=== PATIENT | male | born 1990 | race Caucasian/White ===

== ENCOUNTER 2018-03-11 18:39 | Emergency (ER) | payer MEDICARE, MEDICAID ==
--- NOTE | 2018-03-11 20:10 | ER Document Report ---
ED Medical Screen (RME) - General Chief Complaint: Drug Abuse Stated Complaint: DETOX Time Seen by Provider: 03/11/18 20:08 Notes: 27 years old male who is deaf and dump, has been abusing prescription drugs from a friend, likes to go to detox program therefore presented to the ED. TRAVEL OUTSIDE OF THE U.S. IN LAST 30 DAYS: No - Related Data Allergies/Adverse Reactions: gentamicin [Gentamicin] Allergy (Severe, Verified 09/29/14 19:10) Hearing loss Past Medical History - Social History Frequency of alcohol use: None Drug Abuse: Prescription drugs Renal/ Medical History: Denies: Hx Peritoneal Dialysis Skin Medical History: Denies Hx MRSA - Immunizations Immunizations up to date: Yes Hx Diphtheria, Pertussis, Tetanus Vaccination: Yes Physical Exam - Vital signs Vitals: Temp Pulse Resp BP Pulse Ox 98.3 F 56 L 15 126/74 H 100 03/11/18 19:02 03/11/18 19:02 03/11/18 19:02 03/11/18 19:02 03/11/18 19:02 Course - Vital Signs Vital signs: Temp Pulse Resp BP Pulse Ox 98.3 F 56 L 15 126/74 H 100 03/11/18 19:02 03/11/18 19:02 03/11/18 19:02 03/11/18 19:02 03/11/18 19:02 Doctor's Discharge - Discharge Referrals: JONATHAN MATHUR MD [Primary Care Provider] - Follow up as needed
[2018-03-11 21:24] LABS: ABSOLUTE BASOPHILS # (AUTO) 0.1 10^3/uL (0.0-0.2); ABSOLUTE EOSINOPHILS # (AUTO) 0.4 10^3/uL (0.0-0.6); ABSOLUTE LYMPHOCYTES (AUTO) 2.9 10^3/uL (0.5-4.7); ABSOLUTE MONOCYTES (AUTO) 0.6 10^3/uL (0.1-1.4); ABSOLUTE NEUT (AUTO) 5.1 10^3/uL (1.7-8.2); BASOPHILS % (AUTO) 1.1 % (0-2); EOSINOPHILS % (AUTO) 4.8 % (0-6); HEMATOCRIT 42.7 % (37.9-51.0); HEMOGLOBIN 14.6 g/dL (13.5-17.0); LYMPHOCYTES % (AUTO) 31.7 % (13-45); MEAN CORPUSCULAR HEMOGLOBIN 29.7 pg (27.0-33.4); MEAN CORPUSCULAR HGB CONC 34.3 g/dL (32.0-36.0); MEAN CORPUSCULAR VOLUME 87 fl (80-97); MONOCYTES % (AUTO) 6.7 % (3-13); PLATELET COUNT 280 10^3/uL (150-450); RED BLOOD COUNT 4.93 10^6/uL (4.35-5.55); RED CELL DISTRIBUTION WIDTH 14.1 % (11.5-14.0); SEGMENTED NEUTROPHILS % (AUTO) 55.7 % (42-78); TOTAL CELLS COUNTED % (AUTO) 100 %; WHITE BLOOD COUNT 9.1 10^3/uL (4.0-10.5)
[2018-03-11 21:44] LABS: ALANINE AMINOTRANSFERASE 42 U/L (21-72); ALBUMIN 4.7 g/dL (3.5-5.0); ALKALINE PHOSPHATASE 69 U/L (38-126); ANION GAP 12 (5-19); ASPARTATE AMINO TRANSFERASE 23 U/L (17-59); BILIRUBIN,DIRECT 0.2 mg/dL (0.0-0.4); BILIRUBIN,TOTAL 0.2 mg/dL (0.2-1.3); BLOOD UREA NITROGEN 13 mg/dL (7-20); CALCIUM 9.5 mg/dL (8.4-10.2); CARBON DIOXIDE 26 mmol/L (22-30); CHLORIDE 106 mmol/L (98-107); GLUCOSE 88 mg/dL (75-110); TOTAL PROTEIN 7.4 g/dL (6.3-8.2)
[2018-03-11 21:45] LABS: ACETAMINOPHEN < 10 ug/mL (10-30); ALCOHOL < 10 mg/dL (NONE DETECTED); SALICYLATE < 1.0 mg/dL (2.0-20.0)
[2018-03-11 21:56] LABS: AMORPHOUS SEDIMENT,URINE TRACE /HPF; APPEARANCE,URINE SLIGHTLY-CLOUDY; BILIRUBIN,URINE NEGATIVE (NEGATIVE); COLOR,URINE YELLOW; GLUCOSE, URINE NEGATIVE (NEGATIVE); KETONES,URINE NEGATIVE (NEGATIVE); LEUKOCYTE ESTERASE,URINE NEGATIVE (NEGATIVE); NITRITE,URINE NEGATIVE (NEGATIVE); PROTEIN,URINE NEGATIVE (NEGATIVE); URINE SPECIFIC GRAVITY 1.028
--- NOTE | 2018-03-11 22:02 | ER Document Report ---
ED Substance Abuse / Acc. OD - General TRAVEL OUTSIDE OF THE U.S. IN LAST 30 DAYS: No <TIMOTHY GARCIA - Last Filed: 03/11/18 22:03> <CARLO GOEL - Last Filed: 03/11/18 23:54> <WHIT GHOSH - Last Filed: 03/12/18 11:34> <ANAYELI GOULD - Last Filed: 03/12/18 12:12> - General Chief Complaint: Drug Abuse Stated Complaint: DETOX Time Seen by Provider: 03/11/18 20:08 Notes: 27-year-old deaf male being translated using sign language by his mother that presents to the emergency department today with complaints of wanting detox. Patient has been to multiple inpatient facilities over the last few years for detox. Patient was prescribed Suboxone for some time approximately 2 years ago. Patient states now he is buying suboxone off the street. mom states he has been using it for approximately 2 months. Mom states she believes it was because he was depressed as 2 months ago was the anniversary of his father's and his sister's murder. (TIMOTHY GARCIA) - Related Data Allergies/Adverse Reactions: gentamicin [Gentamicin] Allergy (Severe, Verified 09/29/14 19:10) Hearing loss Past Medical History - General Information source: Patient - Social History Smoking Status: Current Every Day Smoker Cigarette use (# per day): Yes Frequency of alcohol use: None Drug Abuse: Prescription drugs Lives with: Family Family History: Reviewed & Not Pertinent, DM, Hypertension Patient has suicidal ideation: No Patient has homicidal ideation: No Renal/ Medical History: Denies: Hx Peritoneal Dialysis Skin Medical History: Denies Hx MRSA - Immunizations Immunizations up to date: Yes Hx Diphtheria, Pertussis, Tetanus Vaccination: Yes <TIMOTHY GARCIA - Last Filed: 03/11/18 22:03> Review of Systems - Review of Systems Constitutional: See HPI, Other - drug abuse EENT: No symptoms reported Cardiovascular: No symptoms reported Respiratory: No symptoms reported Gastrointestinal: No symptoms reported Genitourinary: No symptoms reported Male Genitourinary: No symptoms reported Musculoskeletal: No symptoms reported Skin: No symptoms reported Hematologic/Lymphatic: No symptoms reported Neurological/Psychological: No symptoms reported -: Yes All other systems reviewed and negative <TIMOTHY GARCIA - Last Filed: 03/11/18 22:03> Physical Exam <RADHATIMOTHY - Last Filed: 03/11/18 22:03> <CARLO GOEL - Last Filed: 03/11/18 23:54> <WHIT GHOSH - Last Filed: 03/12/18 11:34> <ANAYELI GOULD - Last Filed: 03/12/18 12:12> - Vital signs Vitals: Temp Pulse Resp BP Pulse Ox 98.3 F 56 L 15 126/74 H 100 03/11/18 19:02 03/11/18 19:02 03/11/18 19:02 03/11/18 19:02 03/11/18 19:02 - Notes Notes: Physical Exam: General: Alert, appears well. Mom is signing to the patient. HEENT: Normocephalic. Atraumatic. PERRL. Extraocular movements intact. Oropharynx clear. Deaf at baseline. Neck: Supple. Non-tender. Respiratory: No respiratory distress. Clear and equal breath sounds bilaterally. Cardiovascular: Regular rate and rhythm. Abdominal: Normal Inspection. Non-tender. No distension. Normal Bowel Sounds. Back: Non-tender. No deformity or step off. Extremities: Moves all four extremities. Upper extremities: Normal inspection. Normal ROM. Lower extremities: Normal inspection. No edema. Normal ROM. Neurological: Normal cognition. AAOx4. Normal speech. Psychological: Normal affect. Normal Mood. Skin: Warm. Dry. Normal color. (TIMOTHY GARCIA) Course - Laboratory Result Diagrams: 03/11/18 21:06 03/11/18 21:06 <TIMOTHY GARCIA - Last Filed: 03/11/18 22:03> - Laboratory Result Diagrams: 03/11/18 21:06 03/11/18 21:06 <CARLO GOEL - Last Filed: 03/11/18 23:54> - Laboratory Result Diagrams: 03/11/18 21:06 03/11/18 21:06 <WHIT GHOSH - Last Filed: 03/12/18 11:34> - Laboratory Result Diagrams: 03/11/18 21:06 03/11/18 21:06 <ANAYELI GOULD - Last Filed: 03/12/18 12:12> - Vital Signs Vital signs: Temp Pulse Resp BP Pulse Ox 98.5 F 67 16 123/78 98 03/12/18 11:32 03/12/18 11:32 03/12/18 11:32 03/12/18 11:32 03/12/18 11:32 - Laboratory Laboratory results interpreted by me: 03/11/18 03/11/18 03/11/18 21:06 21:06 21:06 RDW 14.1 H Urine Urobilinogen 2.0 H Salicylates < 1.0 L Acetaminophen < 10 L Discharge <TIMOTHY GARCIA - Last Filed: 03/11/18 22:03> <CARLO GOEL - Last Filed: 03/11/18 23:54> <WHIT GHOSH - Last Filed: 03/12/18 11:34> <ANAYELI GOULD - Last Filed: 03/12/18 12:12> - Discharge Clinical Impression: Substance abuse, Desire for detoxification Depression Qualifiers: Depression Type: unspecified Qualified Code(s): F32.9 - Major depressive disorder, single episode, unspecified Condition: Stable Disposition: HOME, SELF-CARE Additional Instructions: You have been evaluated by both medical and behavioral health team center deemed appropriate for discharge. He requests information on detox, you have been provided resource information. AT ANY TIME, IF YOUR SYMPTOMS CHANGE SIGNIFICANTLY OR WORSEN OR YOU DEVELOP NEW SYMPTOMS, RETURN TO THE EMERGENCY DEPARTMENT IMMEDIATELY FOR RE-EVALUATION. Referrals: JONATHAN MATHUR MD [Primary Care Provider] - Follow up as needed [facility] [Outside] - Follow up as needed Scribe Attestation: 03/11/18 22:14 I personally performed the services described in the documentation, reviewed and edited the documentation which was dictated to the scribe in my presence, and it accurately records my words and actions. (CARLO GOEL) Scribe Documentation - Scribe Written by Georgese:: Gagandeep Smith, 03/11/2018 2210 acting as scribe for :: Franki <TIMOTHY GARCIA - Last Filed: 03/11/18 22:03>
[2018-03-11 22:06] LABS: URINE AMPHETAMINES SCREEN NEGATIVE; URINE BARBITURATES SCREEN NEGATIVE; URINE BENZODIAZEPINES SCREEN NEGATIVE; URINE COCAINE SCREEN NEGATIVE; URINE MARIJUANA (THC) SCREEN UNCONFIRMED POSITIVE; URINE METHADONE SCREEN NEGATIVE; URINE PHENCYCLIDINE SCREEN NEGATIVE
[2018-03-12] MEDS ORDERED: NICOTINE 14 MG/24 HR PATCH.TD24 TD ONE (09:52)
--- NOTE | 2018-03-12 10:27 | ER Document Report ---
Doctor's Note Notes: 03/12/18 10:26 Rounds: Chart reviewed. Patient interviewed, but limited because patient is deaf. He does not have any complaints. Looks comfortable. Vital signs are all normal. Lab studies were normal except for being positive for marijuana. Patient appears to be medically stable for transfer or discharge. Patria Green MD
--- NOTE | 2018-03-12 11:34 | PSYCHOLOGICAL NOTE ---
Psych Note - Psych Note Psych Note: Reason for Consult: detox Consent permissions: Mother, Madhavi 27 years old male who is deaf, has been abusing prescription drugs from a friend , likes to go to detox program therefore presented to the ED. Patient disclosed that he came to [facility] with his mother because he attempted to go to [facility] but they had moved. He states that he wants help with detoxing. Patient denies any thoughts of harming himself or others. He reports that he uses Subutex and Suboxone strip or pill as his drug of choice. He denies any diagnoses for mental health other than his substance abuse. Patient states he understands that behavior health team can provide him all the information however he will have to follow through with that information if he continues to want substance abuse assistance. Patient states he has no concerns about this plan just stating that he wants to get clean "badly." Patient's mother discloses the patient needs assistance with detox. She states the patient has been to [facility] in the [employer] in the past. She continued to report that there was one time he was sent to a facility that was dual diagnosis however was told that it was not an appropriate placement because he does not have any mental health concerns other than his substance abuse. She does disclose the patient may have been suffering from some depression because the anniversary of his father and sisters were in January and February which is when he reports he started using again. Patient is alert and orientated to person, place, time and circumstance. Mood is euthymic with congruent affect. Patient denies suicidal and homicidal ideation. Delusions are absent behaviors congruent with an intact reality based presentation i.e. organized and linear thought processes. Eye contact was well-maintained. Patient is deaf and conversation was conducted through written notes. Intellectual abilities appear to be within average range. Attention and concentration were good. Insight, judgment, impulse control are fair. no medication recommendations at this time. Diagnosis 292.9 (F11.99) Unspecified Opioid related disorder Impression/Plan: Patient is cleared from acute psychiatric services. Patient discloses wanting assistance in detox. Patient's toxicology screening indicates only marijuana; however, patient discloses using Suboxone and Subutex. Patient was provided information on resources for substance abuse assistance. Both patient and patient's mother agree patient does not need any psychiatric assistance. Dr. Diaz was consulted and the care and management this patient; attending physician is agreement with recommendations and disposition.
[2018-03-12 11:38] VITALS: BP 123/78
== END 2018-03-12 12:21 | disposition home or self-care (01) ==
LOC: ER 18:39
DX: F19.10 Other psychoactive substance abuse, uncomplicated (principal); F32.9 Major depressive disorder, single episode, unspecified; F17.210 Nicotine dependence, cigarettes, uncomplicated
CPT/HCPCS: 36415; 80053; 80307; 81001; 85025; 99284

== ENCOUNTER 2019-01-24 15:04 | Emergency (ER) | payer MEDICARE, MEDICAID ==
[2019-01-24 15:25] VITALS: BP 165/89
--- NOTE | 2019-01-24 15:40 | ER Document Report ---
ED Medical Screen (RME) - General Chief Complaint: Drug Abuse Stated Complaint: DETOX Time Seen by Provider: 01/24/19 15:30 Primary Care Provider: JONATHAN MATHUR MD [Primary Care Provider] - Follow up as needed Mode of Arrival: Ambulatory Information source: Patient, Parent Notes: Patient presents with his mother with the request for detox from substance abuse. Patient presents complaining of muscle cramps and cold sweats. Patient reports using oxycodone, cocaine methadone and Suboxone. Patient's last use was yesterday. I have greeted and performed a rapid initial assessment of this patient. A comprehensive ED assessment and evaluation of the patient, analysis of test results and completion of the medical decision making process will be conducted by additional ED providers. TRAVEL OUTSIDE OF THE U.S. IN LAST 30 DAYS: No - Related Data Allergies/Adverse Reactions: gentamicin [Gentamicin] Allergy (Severe, Verified 09/29/14 19:10) Hearing loss Past Medical History Renal/ Medical History: Denies: Hx Peritoneal Dialysis Skin Medical History: Denies Hx MRSA - Immunizations Immunizations up to date: Yes Hx Diphtheria, Pertussis, Tetanus Vaccination: Yes Physical Exam - Vital signs Vitals: Temp Pulse Resp BP Pulse Ox 98.9 F 108 H 20 165/89 H 96 01/24/19 15:24 01/24/19 15:24 01/24/19 15:24 01/24/19 15:24 01/24/19 15:24 - General General appearance: Appears well, Alert Notes: Patient deaf, mother interpreting for patient via sign language Course - Vital Signs Vital signs: Temp Pulse Resp BP Pulse Ox 98.9 F 108 H 20 165/89 H 96 01/24/19 15:24 01/24/19 15:24 01/24/19 15:24 01/24/19 15:24 01/24/19 15:24 Doctor's Discharge - Discharge Referrals: JONATHAN MATHUR MD [Primary Care Provider] - Follow up as needed
[2019-01-24 17:01] LABS: ABSOLUTE BASOPHILS # (AUTO) 0.1 10^3/uL (0.0-0.2); ABSOLUTE EOSINOPHILS # (AUTO) 0.3 10^3/uL (0.0-0.6); ABSOLUTE LYMPHOCYTES (AUTO) 2.6 10^3/uL (0.5-4.7); ABSOLUTE MONOCYTES (AUTO) 0.9 10^3/uL (0.1-1.4); ABSOLUTE NEUT (AUTO) 5.8 10^3/uL (1.7-8.2); BASOPHILS % (AUTO) 1.1 % (0-2); EOSINOPHILS % (AUTO) 3.1 % (0-6); HEMATOCRIT 46.5 % (37.9-51.0); LYMPHOCYTES % (AUTO) 26.6 % (13-45); MEAN CORPUSCULAR HEMOGLOBIN 29.4 pg (27.0-33.4); MEAN CORPUSCULAR HGB CONC 34.3 g/dL (32.0-36.0); MEAN CORPUSCULAR VOLUME 86 fl (80-97); MONOCYTES % (AUTO) 9.2 % (3-13); PLATELET COUNT 334 10^3/uL (150-450); RED BLOOD COUNT 5.42 10^6/uL (4.35-5.55); RED CELL DISTRIBUTION WIDTH 13.1 % (11.5-14.0); TOTAL CELLS COUNTED % (AUTO) 100 %; WHITE BLOOD COUNT 9.6 10^3/uL (4.0-10.5)
[2019-01-24 17:29] LABS: ALANINE AMINOTRANSFERASE 35 U/L (21-72); ALBUMIN 5.1 g/dL (3.5-5.0); ALKALINE PHOSPHATASE 59 U/L (38-126); ANION GAP 11 (5-19); ASPARTATE AMINO TRANSFERASE 23 U/L (17-59); BILIRUBIN,DIRECT 0.2 mg/dL (0.0-0.4); BILIRUBIN,TOTAL 0.7 mg/dL (0.2-1.3); BLOOD UREA NITROGEN 21 mg/dL (7-20); CALCIUM 9.8 mg/dL (8.4-10.2); CARBON DIOXIDE 28 mmol/L (22-30); CHLORIDE 103 mmol/L (98-107); GLUCOSE 91 mg/dL (75-110); POTASSIUM 4.2 mmol/L (3.6-5.0); SODIUM 141.6 mmol/L (137-145); TOTAL PROTEIN 7.7 g/dL (6.3-8.2)
[2019-01-24 17:30] LABS: ACETAMINOPHEN < 10 ug/mL (10-30); ALCOHOL < 10 mg/dL (NONE DETECTED); SALICYLATE < 1.0 mg/dL (2.0-20.0)
[2019-01-24] MEDS ORDERED: CLONIDINE 0.1 MG/24 HR PATCH.TDWK TD ONE (19:56)
[2019-01-24] MEDS ORDERED: ONDANSETRON ODT 4 MG TAB (6 TAB/ER DISP) PO PRN (19:56)
[2019-01-24] MEDS ORDERED: ONDANSETRON 4 MG TAB.RAPDIS PO ONE (19:56)
--- NOTE | 2019-01-24 20:03 | ER Document Report ---
ED General - General Chief Complaint: Drug Abuse Stated Complaint: DETOX Time Seen by Provider: 01/24/19 15:30 Primary Care Provider: JONATHAN MATHUR MD [Primary Care Provider] - Follow up as needed Mode of Arrival: Ambulatory Information source: Patient TRAVEL OUTSIDE OF THE [place] IN LAST 30 DAYS: No - HPI Patient complains to provider of: Wants detox from marijuana, Suboxone, cocaine, meth, and opioids Onset: Other - Chronic Severity: None Associated symptoms: None Exacerbated by: Denies Relieved by: Denies Similar symptoms previously: No Recently seen / treated by doctor: No Notes: Patient is a 28-year-old male brought in by mom and girlfriend with history of off and on multidrug abuse. Coming in today wanting to detox off of 5 different medications including marijuana, cocaine, methamphetamine, opiates, and Suboxone. He presently does not have any symptoms of withdrawal but knows within a day or 2 he will have sweats and the body aches and the nausea. Previous attempt at detox was done up in [place]. - Related Data Allergies/Adverse Reactions: gentamicin [Gentamicin] Allergy (Severe, Verified 09/29/14 19:10) Hearing loss Past Medical History - General Information source: Patient, Parent - Social History Smoking Status: Current Every Day Smoker Frequency of alcohol use: None Drug Abuse: Cocaine, Marijuana, Methamphetamine, Prescription drugs Family History: Reviewed & Not Pertinent, DM, Hypertension Patient has suicidal ideation: No Patient has homicidal ideation: No Renal/ Medical History: Denies: Hx Peritoneal Dialysis Skin Medical History: Denies Hx MRSA - Immunizations Immunizations up to date: Yes Hx Diphtheria, Pertussis, Tetanus Vaccination: Yes Review of Systems - Review of Systems Notes: Constitutional: No fevers. No chills. EENT: No eye redness. No eye pain. No ear pain. No sore throat. Cardiovascular: No chest pain. No palpitations. Respiratory: No cough. No shortness of breath. No respiratory distress. Gastrointestinal: No abdominal pain. No nausea, vomiting, or diarrhea. Genitourinary: Atraumatic. No lesions. No pain. No discharge. Musculoskeletal: Atraumatic. No swelling. No deformities. Skin: No rash or lesions. Lymphatic: No swollen lymph nodes. Neurologic: No headache. No syncope. Psychiatric: No suicidal or homicidal ideation. Physical Exam - Vital signs Vitals: Temp Pulse Resp BP Pulse Ox 98.9 F 108 H 20 165/89 H 96 01/24/19 15:24 01/24/19 15:24 01/24/19 15:24 01/24/19 15:24 01/24/19 15:24 - Notes Notes: General: Well-developed, well-nourished. In no acute distress. Non-toxic appearing. Cardiac: Well-perfused. Regular rate and rhythm. No murmurs, rubs, or gallops. Pulmonary: No respiratory distress. No cyanosis. Bilateral lung fiels are clear to auscultation. Abdominal: Non-distended. Non-rigid. Bowels sounds are present in all four quadrants. No guarding or rebound. HEENT: Head is atraumatic. Conjunctivae not reddened. No tearing. PERRL. EOMI. Orbits atraumatic. No periorbital swelling or erythema. Oropharynx is without erythema, swelling, or exudates. Neck: Supple. No adenopathy. No meningismus. Dermatologic: Warm with good turgor. No rash. Atraumatic. Chest: Atraumatic. No chest wall tenderness to palpation. Musculoskeletal: Moves all extremities well. No range of motion deficits. no muscular or joint tenderness. No paraspinal muscle tenderness. no midline spinal tenderness or step-off. Genitourinary: Examination deferred Neurologic: No gross neurologic deficits. Psychiatric: Normal mood. Course - Re-evaluation Re-evalutation: 01/24/19 20:03 Due to the patient's deafness we used the [employer] educational interpreter's name is Sandy #[id number]. We discussed we do not have an on campus detox program. We did discuss given the patient medications to help with his withdrawal symptoms until he can contact the appropriate people who can assist him in getting into a detox program. All questions were answered to everybody satisfaction. Patient will get a patch of clonidine 0.1 mg and also some Zofran as needed for nausea and to take home Zofran bottle. The family will do the appropriate phone call and work on getting patient set up with the appropriate detox. - Vital Signs Vital signs: Temp Pulse Resp BP Pulse Ox 98.9 F 108 H 20 165/89 H 96 01/24/19 15:24 01/24/19 15:24 01/24/19 15:24 01/24/19 15:24 01/24/19 15:24 - Laboratory Result Diagrams: 01/24/19 16:34 01/24/19 16:34 Laboratory results interpreted by me: 01/24/19 16:34 BUN 21 H Albumin 5.1 H Salicylates < 1.0 L Acetaminophen < 10 L Discharge - Discharge Clinical Impression: Substance abuse, Desire for detoxification Condition: Good Disposition: HOME, SELF-CARE Additional Instructions: Please call the phone number immediately to start the process for getting admitted to a detox program. If you are not admitted to the detox program and are having severe withdrawal symptoms, return to the emergency department instead of resuming drug abuse. Referrals: JONATHAN MATHUR MD [Primary Care Provider] - Follow up as needed
== END 2019-01-24 20:24 | disposition home or self-care (01) ==
LOC: ER 15:04
DX: F14.10 Cocaine abuse, uncomplicated (principal); F12.10 Cannabis abuse, uncomplicated; F15.10 Other stimulant abuse, uncomplicated; F19.10 Other psychoactive substance abuse, uncomplicated; F17.200 Nicotine dependence, unspecified, uncomplicated; Z88.1 Allergy status to other antibiotic agents; H91.90 Unspecified hearing loss, unspecified ear
CPT/HCPCS: 99283; 36415; 80307 ×3; 85025; 80053; A9270 ×2; J3490; S0119

== ENCOUNTER 2019-01-25 15:19 | Emergency (ER) | payer MEDICARE, MEDICAID ==
[2019-01-25] MEDS ORDERED: ONDANSETRON ODT 4 MG TAB (6 TAB/ER DISP) PO PRN (17:18)
[2019-01-25] MEDS ORDERED: CLONIDINE 0.1 MG/24 HR PATCH.TDWK TD ONE (17:18)
--- NOTE | 2019-01-25 17:18 | ER Document Report ---
ED General - General Chief Complaint: Medical Complaint Stated Complaint: WITHDRAWLS Time Seen by Provider: 01/25/19 17:04 Primary Care Provider: JONATHAN MATHUR MD [Primary Care Provider] - Follow up as needed Notes: 28-year-old male brought in by girlfriend with history of multidrug abuse. Patient was seen here yesterday for goal of detoxification off 5 different medications including marijuana, cocaine, methamphetamine, opiates, and Suboxone. He compensated for his opiate abuse by using methamphetamines over the last 2 weeks. He attempted to get into rehab yesterday but he was denied because he had methamphetamines in his system. He was given a clonidine patch yesterday which said he said he got great relief from. He does have anxiety, does not have a rapid heart rate or diarrhea, does not have any other symptoms of withdrawal. He said he is concerned that the clonidine patch is wearing off and he is requesting another one. His girlfriend said they are waiting for a call from a detox center but if they do not hear anything plan is to do a walking on Sunday here in [place]. No other complaints. TRAVEL OUTSIDE OF THE U.S. IN LAST 30 DAYS: No - Related Data Allergies/Adverse Reactions: gentamicin [Gentamicin] Allergy (Severe, Verified 01/25/19 15:21) Hearing loss Past Medical History - Social History Smoking Status: Current Every Day Smoker Frequency of alcohol use: None Drug Abuse: Methamphetamine, Prescription drugs Family History: Reviewed & Not Pertinent, DM, Hypertension Patient has suicidal ideation: No Patient has homicidal ideation: No Renal/ Medical History: Denies: Hx Peritoneal Dialysis Skin Medical History: Denies Hx MRSA - Immunizations Immunizations up to date: Yes Hx Diphtheria, Pertussis, Tetanus Vaccination: Yes Review of Systems - Review of Systems Constitutional: No symptoms reported EENT: No symptoms reported Cardiovascular: No symptoms reported Respiratory: No symptoms reported Gastrointestinal: See HPI Genitourinary: No symptoms reported Male Genitourinary: No symptoms reported Musculoskeletal: No symptoms reported Skin: No symptoms reported Hematologic/Lymphatic: No symptoms reported Neurological/Psychological: See HPI Physical Exam - Vital signs Vitals: Temp Pulse Resp BP Pulse Ox 98.4 F 82 18 129/73 H 99 01/25/19 15:31 01/25/19 15:31 01/25/19 15:31 01/25/19 15:31 01/25/19 15:31 - Notes Notes: PHYSICAL EXAMINATION: Reviewed vital signs and charting by RN GENERAL: Alert, interacts well. No acute distress. HEAD: Normocephalic, atraumatic. EYES: Pupils equal and round. Extraocular movements intact. ENT: Oral mucosa moist, tongue midline. NECK: Full range of motion. Trachea midline. LUNGS: Clear to auscultation bilaterally, no wheezes, rales, or rhonchi. No respiratory distress. HEART: Regular rate and rhythm. No murmur EXTREMITIES: Moves all 4 extremities spontaneously. No edema, No cyanosis. PSYCH: Normal affect, normal mood. SKIN: Warm, dry, normal turgor. No rashes or lesions noted. Course - Re-evaluation Re-evalutation: 01/25/19 17:15 Patient is well-appearing and calm. Vital signs are all within normal limits. Patient states he is here just to get a an additional clonidine patch for 24 hours. States he got great relief from the first one. At this time patient is not in acute distress or does not appear to be in acute withdrawal. I will give him a clonidine patch and at this time he is stable for discharge. I do not feel we need to get any additional lab work at this time. He has lab work from yesterday. - Vital Signs Vital signs: Temp Pulse Resp BP Pulse Ox 99.2 F 79 16 128/67 H 100 01/25/19 17:34 01/25/19 17:34 01/25/19 17:34 01/25/19 17:34 01/25/19 17:34 Discharge - Discharge Clinical Impression: Symptom of drug withdrawal Condition: Good Disposition: HOME, SELF-CARE Additional Instructions: You were seen in the emergency department today for symptoms of drug withdrawal. We have given you another clonidine patch. Please follow-up with the rehab facility. If you develop acute agitation, rapid heart rate, profuse diarrhea, intractable nausea or vomiting, or any other concerning withdrawal symptoms please return to the emergency department. Referrals: JONATHAN MATHUR MD [Primary Care Provider] - Follow up as needed
[2019-01-25 17:36] VITALS: BP 128/67
== END 2019-01-25 17:40 | disposition home or self-care (01) ==
LOC: ER 15:19
DX: R68.89 Other general symptoms and signs (principal); F15.10 Other stimulant abuse, uncomplicated; F11.10 Opioid abuse, uncomplicated; Z88.1 Allergy status to other antibiotic agents
CPT/HCPCS: 99283; J3490; A9270

== ENCOUNTER 2019-02-16 15:20 | Emergency (ER) | payer MEDICARE, MEDICAID ==
[2019-02-16 15:25] VITALS: BP 135/79
[2019-02-16] MEDS ORDERED: DIPH/PERTUSS(ACELL)/TETANUS VAC/PF 0.5 ML SYR (>=10YO) IM ONE (15:33)
--- NOTE | 2019-02-16 15:34 | ER Document Report ---
HPI - HPI Time Seen by Provider: 02/16/19 15:28 Pain Level: 5 Notes: Patient is a 28-year-old male who presents to the emergency department complaining of left hand pain to the fourth and fifth digit status post injury yesterday. Patient is not sure exactly how he injured his fingers, but rolled over top of his hand. Patient has noticed bruising and swelling to the fingers. He has not been able to move his fingers very well because of the pain. Pain does not radiate. Denies any headache, fever, head injury, neck pain, URI, sore throat, chest pain, palpitations, syncope, cough, shortness of breath, wheeze, dyspnea, abdominal pain, nausea/vomiting/diarrhea, urinary retention, dysuria, hematuria, loss of control of bowel or bladder, numbness/tingling, muscle paralysis/weakness, or rash. Last tetanus >5yrs ago. - ROS Systems Reviewed and Negative: Yes All other systems reviewed and negative - REPRODUCTIVE Reproductive: DENIES: : Past Medical History - Social History Smoking Status: Unknown if Ever Smoked Family History: Reviewed & Not Pertinent, DM, Hypertension Renal/ Medical History: Denies: Hx Peritoneal Dialysis Skin Medical History: Denies Hx MRSA - Immunizations Immunizations up to date: Yes Hx Diphtheria, Pertussis, Tetanus Vaccination: Yes Vertical Provider Document - CONSTITUTIONAL Agree With Documented VS: Yes Notes: PHYSICAL EXAMINATION: GENERAL: Well-appearing, well-nourished and in no acute distress. HEAD: Atraumatic, normocephalic. NECK: Normal range of motion, supple without lymphadenopathy. No midline tenderness. LUNGS: Breath sounds clear to auscultation bilaterally and equal. No wheezes rales or rhonchi. HEART: Regular rate and rhythm without murmurs, rubs, gallops. Musculoskeletal: Lt hand/wrist: + ecchymosis/swelling noted to the dorsal hand near 4th-5th digits with associated tenderness. N/V intact distal. FROM to pas sive/active at the wrist. Strength 5+/5. No scaphoid tenderness. + skin abrasion to 4th digit. Extremities: No cyanosis, clubbing, or edema b/l. Peripheral pulses 2+. Capillary refill less than 3 seconds. NEUROLOGICAL: Normal speech, normal gait. Normal sensory, motor exams otherwise unremarkable PSYCH: Normal mood, normal affect. SKIN: see above. No rash - INFECTION CONTROL TRAVEL OUTSIDE OF THE [place] IN LAST 30 DAYS: No Course - Re-evaluation Re-evalutation: 02/16/19 16:[address] Green who is in agreement with dispo/plan and reduction attempt. Patient is an afebrile, well-hydrated, 28-year-old male who presents to the ED with a fracture to the proximal left phalanx with 45 degrees volar angulation. Vitals are acceptable without any significant tachycardia, tachypnea, or hypoxia. PE is otherwise unremarkable for any neurovascular compromise, obvious tendon/ligament rupture, open fracture, septic joint. See XR result. I was able to reduce the angulation and clinically the digit appeared in much better alignment. Splint applied today. Patient is nontoxic-appearing. No other labs or imaging warranted at this time based on H&P. Conservative measures otherwise for symptoms. Recheck with your PCM in 3-5 days. Call orthopedics tomorrow to schedule an appointment for further evaluation and management. Return to the ED with any worsening/concerning symptoms otherwise as reviewed in discharge. Patient is in agreement. - Vital Signs Vital signs: Temp Pulse Resp BP Pulse Ox 99.9 F 113 H 16 135/79 H 98 02/16/19 15:21 02/16/19 15:21 02/16/19 15:21 02/16/19 15:21 02/16/19 15:21 Procedures - Joint Reduction/Fracture Care Left Finger 5th digit Time completed: 16:00 Consent obtained: Yes Conscious sedation: No Pre-procedure NV exam: Yes - normal Fracture: Closed Post-procedure NV exam: Yes - normal Post-reduction x-ray: Joint reduced - angulation reduced by clinical exam Reduction attempts: 1 Complications: No Discharge - Discharge Clinical Impression: Finger fracture, left Qualifiers: Encounter type: initial encounter Finger: little finger Fracture type: closed Phalanx: proximal Fracture alignment: nondisplaced Qualified Code(s): S62.647A - Nondisplaced fracture of proximal phalanx of left little finger, initial encounter for closed fracture Condition: Stable Disposition: HOME, SELF-CARE Additional Instructions: Rest, Ice, Compression, Elevation Use splint as directed Tylenol/ibuprofen as needed F/u with your PCP in 3-5 days for a recheck Call orthopedics tomorrow to schedule an appointment for further evaluation and management Return to the ED with any worsening symptoms and/or development of fever, headache, chest pain, palpitations, syncope, shortness of breath, trouble breathing, abdominal pain, n/v/d, muscle weakness/paralysis, numbness/tingling, swelling, redness, or other worsening symptoms that are concerning to you. Prescriptions: Ibuprofen [Ibu] 800 mg PO TID PRN #15 tablet PRN Reason: Forms: Elevated Blood Pressure Referrals: JONATHAN MATHUR MD [Primary Care Provider] - Follow up as needed [facility] [Provider Group] - Follow up in 3-5 days
[2019-02-16] MEDS ORDERED: FENTANYL CITRATE INJ/PF 100 MCG/2 ML AMPUL IM ONE (15:50)
--- NOTE | 2019-02-16 15:50 | RADIOLOGY REPORT (SQ) ---
EXAM DESCRIPTION: HAND LEFT 3 VIEWS COMPLETED DATE/TIME: 02/16/2019 3:39 pm REASON FOR STUDY: left 4th-5th digit pain s/p injury COMPARISON: None. EXAM PARAMETERS: NUMBER OF VIEWS: Three views. TECHNIQUE: AP, lateral and oblique radiographic images acquired of the left hand. LIMITATIONS: None. FINDINGS: MINERALIZATION: Normal. BONES: Fracture of the proximal 5th phalanx proximal diaphysis with approximately 45 volar angulatio n. JOINTS: No effusions. SOFT TISSUES: No soft tissue swelling. No foreign body. OTHER: No other significant finding. IMPRESSION: Fracture proximal 5th phalanx. TECHNICAL DOCUMENTATION: JOB ID: [id number] [employer]- All Rights Reserved Reading location - IP/workstation name: [email or web address]
== END 2019-02-16 16:20 | disposition home or self-care (01) ==
LOC: ER 15:20
DX: S62.647A Nondisplaced fracture of proximal phalanx of left little finger, initial encounter for closed fracture (principal); M79.645 Pain in left finger(s); X58.XXXA Exposure to other specified factors, initial encounter
CPT/HCPCS: 99283; 90471; 73130; 90715; 26725; J3010